=== PATIENT | female | born 1995 | race Two or more races ===

== ENCOUNTER 2018-10-09 12:26 | Emergency (ER) | payer MEDICAID ==
--- NOTE | 2018-10-09 12:47 | ER Document Report ---
HPI - HPI Patient complains to provider of: vaginal discharge Time Seen by Provider: 10/09/18 12:36 Onset: Other - 2 days Onset/Duration: Gradual Quality of pain: No pain Pain Level: Denies Context: Patient presents complaining of white vaginal discharge for the past 2 days. Patient denies any pelvic pain or urinary symptoms. Patient denies any concern about . Patient denies any recent new sexual partners. Associated Symptoms: Other - Vaginal discharge. denies: Fever, Vomiting Exacerbated by: Denies Relieved by: Denies Similar symptoms previously: No Recently seen / treated by doctor: No - ROS ROS below otherwise negative: Yes Systems Reviewed and Negative: Yes All other systems reviewed and negative - CONSTITUTIONAL Constitutional: DENIES: Fever, Chills - NEURO Neurology: DENIES: Weakness - GASTROINTESTINAL Gastrointestinal: DENIES: Abdominal Pain, Nausea, Patient vomiting - URINARY Urinary: DENIES: Dysuria - REPRODUCTIVE Reproductive: REPORTS: Abnormal bleeding / discharge. DENIES: : - MUSCULOSKELETAL Musculoskeletal: DENIES: Extremity pain - DERM Skin Color: Normal Skin Problems: None Past Medical History - General Information source: Patient - Social History Smoking Status: Never Smoker Chew tobacco use (# tins/day): No Frequency of alcohol use: None Drug Abuse: None Occupation: none Lives with: Family Family History: Reviewed & Not Pertinent Patient has suicidal ideation: No Patient has homicidal ideation: No - Medical History Medical History: Negative Renal/ Medical History: Denies: Hx Peritoneal Dialysis Surgical Hx: Negative Vertical Provider Document - CONSTITUTIONAL Agree With Documented VS: Yes Exam Limitations: No Limitations General Appearance: WD/WN, No Apparent Distress - INFECTION CONTROL TRAVEL OUTSIDE OF THE [place] IN LAST 30 DAYS: No - HEENT HEENT: Atraumatic, Normocephalic - NECK Neck: Normal Inspection, Supple. negative: Lymphadenopathy-Left, Lymphadenopathy-Right - RESPIRATORY Respiratory: Breath Sounds Normal, No Respiratory Distress - CARDIOVASCULAR Cardiovascular: Regular Rate, Regular Rhythm - GI/ABDOMEN Gastrointestinal: Abdomen Soft, Abdomen Non-Tender, No Organomegaly, Normal Bowel Sounds - BACK Back: Normal Inspection - MUSCULOSKELETAL/EXTREMETIES Musculoskeletal/Extremeties: MAEW - NEURO Level of Consciousness: Awake, Alert, Appropriate Motor/Sensory: No Motor Deficit - DERM Integumentary: Warm, Dry, No Rash Course - Re-evaluation Re-evalutation: 10/09/18 Patient with BV noted on a wet prep. Will treat prophylactically for gonorrhea chlamydia at this time. Good return precautions discussed. Patient's abdomen continues soft nontender. - Vital Signs Vital signs: Temp Pulse Resp BP Pulse Ox 98.8 F 84 15 127/76 H 97 10/09/18 12:33 10/09/18 12:33 10/09/18 12:33 10/09/18 12:33 10/09/18 12:33 - Laboratory Laboratory results interpreted by me: 10/09/18 13:15 Labs- Entire Visit 10/09/18 12:58 Epi Cells (Wet Prep) 4+ EPITHELIALS SEEN Bacteria (Wet Prep) 4+ BACTERIA SEEN Trichomonas (Wet Prep) NO TRICHOMONAS SEEN Vaginal WBC 3+ WBCS SEEN Vaginal RBC 3+ RBCS SEEN Vaginal Yeast NO YEAST SEEN Discharge - Discharge Clinical Impression: Vaginal discharge, Bacterial vaginosis Condition: Stable Disposition: HOME, SELF-CARE Instructions: Azithromycin ([facility]), Metronidazole ([facility]), Rocephin ([facility]), Vaginosis, Bacterial ([facility]) Additional Instructions: Return immediately for any new or worsening symptoms Followup with your primary care provider, call tomorrow to make a followup appointment Cultures are pending, we will call if you need any different treatment Prescriptions: Metronidazole [Flagyl 500 mg Tablet] 500 mg PO BID #14 tablet Referrals: [facility] [Provider Group] - Follow up as needed
[2018-10-09 13:10] LABS: BACTERIA (WET MOUNT) 4+ BACTERIA SEEN; EPITHELIALS (WET MOUNT) 4+ EPITHELIALS SEEN; RBCS (WET MOUNT) 3+ RBCS SEEN; T.VAGINALIS (WET MOUNT) NO TRICHOMONAS SEEN; WBCS (WET MOUNT) 3+ WBCS SEEN; YEAST (WET MOUNT) NO YEAST SEEN
[2018-10-09] MEDS ORDERED: AZITHROMYCIN 250 MG TABLET PO ONE (13:14)
[2018-10-09] MEDS ORDERED: CEFTRIAXONE INJ 250 MG VIAL IM ONE (13:14)
[2018-10-09] MEDS ORDERED: METRONIDAZOLE 500 MG TABLET PO ONE (13:14)
[2018-10-09] MEDS ORDERED: LIDOCAINE 1% INJ (10 MG/ML) 10 ML MDV INJ ONE (13:14)
[2018-10-09 13:41] VITALS: BP 122/72
[2018-10-09 14:35] LABS: CHLAM PCR NOT DETECTED (NOT DETECT)
== END 2018-10-09 13:38 | disposition home or self-care (01) ==
LOC: ER 12:26
DX: N76.0 Acute vaginitis (principal); B96.89 Other specified bacterial agents as the cause of diseases classified elsewhere
CPT/HCPCS: 99283; 96372; 87210; 87491; 87591; J0696